=== PATIENT | female | born 2000 | race Caucasian/White ===

== ENCOUNTER 2025-05-25 15:34 | Emergency (ER) | payer BC ==
[~2025-05-25] VITALS: Ht 165.1 cm; Wt 70.0 kg
[2025-05-25 15:40] VITALS: O2SAT 100
[2025-05-25] MEDS ORDERED: TETANUS, DIPHTHERIA, PERTUSSIS VAC/PF 0.5ML (>10YR OLD) IM ONE (16:30)
[2025-05-25] MEDS ORDERED: CIPR-452 MT (17:04)
[2025-05-25] MEDS ORDERED: SULF1TAB48 MT (17:04)
[2025-05-25] MEDS ORDERED: DOXY150T9 MT (17:54)
[2025-05-25] MEDS: TETANUS, DIPHTHERIA, PERTUSSIS VAC/PF 0.5ML (>10YR OLD) IM ONE (18:31)
[2025-05-25 18:35] VITALS: BP 140/60; PULSE 88; RESP 16; TEMP 37; O2SAT 100
== END 2025-05-25 18:39 | disposition home or self-care (01) ==
LOC: ER 15:34
DX: M79.671 Pain in right foot (principal); Z88.0 Allergy status to penicillin; Z98.890 Other specified postprocedural states
CPT/HCPCS: 73630; 81025; 90471; 90715; 99283